=== PATIENT | male | born 1950 | race African-American/Black ===

== ENCOUNTER 2018-04-09 18:18 | Emergency (ER) | payer MEDICARE, MEDICAID ==
[~2018-04-09] VITALS: Ht 170.2 cm; Wt 59.0 kg
[2018-04-09] MEDS ORDERED: SODIUM CHLORIDE 0.9% 1,000 ML IV ONE (20:27)
[2018-04-09] MEDS ORDERED: ONDANSETRON HCL 4MG/2ML INJ IV STA (20:27)
[2018-04-09] MEDS ORDERED: BACITRACIN ZINC OINT UDPKT TOP ONE (20:30)
[2018-04-09] MEDS ORDERED: TETANUS, DIPHTHERIA, PERTUSSIS VAC/PF 0.5ML (>7YR OLD) IM ONE (20:30)
[2018-04-09 23:19] VITALS: BP 128/79
[2018-04-09 23:43] LABS: CHLORIDE 102 mEq/L (98-107)
[2018-04-09 23:44] LABS: BASOPHILS % 1.1 % (0.0-2.0); HEMOGLOBIN. 16.5 g/dL (14.0-18.0); LYMPHOCYTES % 14.1 % (20.0-50.0); MEAN CORPUSCULAR HEMOGLOBIN 33.6 pg (28.0-32.0); MEAN CORPUSCULAR VOLUME 99.7 fL (80.0-94.0); MONOCYTES % 7.1 % (2.0-8.0); NEUTROPHILS % 71.7 % (40.0-76.0); PLATELET 191 x1000/uL (130-400); RED BLOOD CELL COUNT 4.91 mill/uL (4.7-6.1); RED CELL DISTRIBUTION WIDTH 14.1 % (11.6-14.6)
[2018-04-09 23:47] LABS: ETHANOL BLOOD 207 mg/dL
[2018-04-10 00:42] LABS: CREATINE KINASE 210 IU/L (39-308)
== END 2018-04-10 00:51 | disposition home or self-care (01) ==
LOC: ER 19:10
DX: T51.0X1A Toxic effect of ethanol, accidental (unintentional), initial encounter (principal); F10.129 Alcohol abuse with intoxication, unspecified; Y90.7 Blood alcohol level of 200-239 mg/100 ml; G92 Toxic encephalopathy; S09.8XXA Other specified injuries of head, initial encounter; Y92.480 Sidewalk as the place of occurrence of the external cause
CPT/HCPCS: 36415; 70450; 80053; 82550; 84443; 85025; 90471; 90715; 96361; 96374; 99284; G0482; J2405; J7030

== ENCOUNTER 2019-08-08 23:01 | Inpatient (IN) | payer MEDICARE, MEDICAID ==
[~2019-08-08] VITALS: Ht 170.2 cm; Wt 64.0 kg
[2019-08-09] VITALS (20 sets, daily range): BP systolic 95–151; BP diastolic 53–89
[2019-08-09 00:15] LABS: CHLORIDE 105 mEq/L (98-107); INR 1.3; PROTHROMBIN TIME 13.8 sec (9.6-11.0)
[2019-08-09] MEDS ORDERED: SODIUM CHLORIDE 0.9% 1,000 ML IV ONE (00:15)
[2019-08-09 00:19] LABS: ETHANOL BLOOD < 10 mg/dL
[2019-08-09 00:22] LABS: LDL CHOLESTEROL 24 mg/dL (5-100)
[2019-08-09] MEDS ORDERED: IOHEXOL-350 100 ML BOTTLE ONE ×2 (00:23→00:24)
[2019-08-09 00:46] LABS: MEAN CORPUSCULAR HEMOGLOBIN 13.9 pg (28.0-32.0); MEAN CORPUSCULAR VOLUME 52.7 fL (80.0-94.0); MEAN PLATELET VOLUME 8.6 fl (7.4-10.4); PLATELET 341 x1000/uL (130-400); RED BLOOD CELL COUNT 1.92 mill/uL (4.7-6.1)
[2019-08-09 00:49] LABS: HEMATOCRIT. 10.1 % (42.0-52.0)
[2019-08-09 00:50] LABS: HEMOGLOBIN. 2.7 g/dL (14.0-18.0)
[2019-08-09 01:27] LABS: NUCLEATED RED BLOOD CELLS 2 /100 WBC
[2019-08-09 01:28] LABS: PLATELET ESTIMATE NORMAL
[2019-08-09 02:07] LABS: TOTAL IRON BINDING CAPACITY 471 ug/dL (250-450)
[2019-08-09] MEDS ORDERED: FAMOTIDINE 20MG/2ML VIAL IV ONE (06:30)
[2019-08-09] MEDS ORDERED: ASPIRIN 81MG TABLET PO ONE (06:30)
[2019-08-09] MEDS ORDERED: DIPHENHYDRAMINE 50MG/ML VIAL IV PRN (07:15)
[2019-08-09] MEDS ORDERED: CLONIDINE 0.1MG TABLET PO PRN (07:15)
[2019-08-09] MEDS ORDERED: LORAZEPAM 2MG/ML CPJ IV PRN (07:15)
[2019-08-09] MEDS ORDERED: ONDANSETRON HCL 4MG/2ML INJ IV PRN (07:15)
[2019-08-09] MEDS ORDERED: DOCUSATE SODIUM 100MG CAPSULE PO PRN (07:15)
[2019-08-09] MEDS ORDERED: IPRATROPIUM/ALBUTEROL 0.5-3(2.5)MG/3ML NEB HHN PRN (07:15)
[2019-08-09] MEDS ORDERED: HYDRALAZINE 20MG/ML VIAL IV PRN (07:15)
[2019-08-09] MEDS ORDERED: HYDROCODONE/ACETAMINOPHEN 10/325MG TABLET PO PRN (07:15)
[2019-08-09] MEDS ORDERED: MORPHINE SULFATE 2 MG/ML CPJ (NOT FOR IM USE) IV PRN (07:15)
[2019-08-09] MEDS ORDERED: ACETAMINOPHEN 325MG TABLET PO PRN (07:15)
[2019-08-09] MEDS ORDERED: GUAIFENESIN 200MG/10ML SUGAR FREE UDC PO PRN (07:15)
[2019-08-09] MEDS ORDERED: MAGNESIUM/ALUMINUM HYDROXIDE/SIMETHICONE 30ML UDC PO PRN (07:15)
[2019-08-09] MEDS ORDERED: DEXT 5%/0.9% NACL 1,000 ML IV SCH (07:30)
[2019-08-09 08:28] LABS: CLARITY URINE CLEAR (CLEAR); COLOR URINE YELLOW (YELLOW); KETONES URINE NEGATIVE (NEGATIVE); LEUKOCYTE ESTERASE URINE NEGATIVE (NEGATIVE); NITRITE URINE NEGATIVE (NEGATIVE); OCCULT BLOOD URINE NEGATIVE (NEGATIVE); PROTEIN URINE NEGATIVE (NEGATIVE); SPECIFIC GRAVITY URINE 1.021 (1.005-1.030); UROBILINOGEN URINE 0.2 E.U./dL (0.2-1.0)
[2019-08-09 08:41] LABS: *BARBITURATES SCREEN URINE PRESUMTIVE POSITIVE (NEGATIVE)
[2019-08-09 08:42] LABS: *AMPHETAMINES SCREEN URINE NEGATIVE (NEGATIVE); *BENZODIAZEPINES SCREEN URINE NEGATIVE (NEGATIVE); *COCAINE SCREEN URINE NEGATIVE (NEGATIVE); METHADONE URINE SCREEN NEGATIVE (NEGATIVE)
[2019-08-09 08:43] LABS: CANNABINOID URINE SCREEN NEGATIVE (NEGATIVE); OPIATES URINE SCREEN NEGATIVE (NEGATIVE); PHENCYCLIDINE URINE SCREEN NEGATIVE (NEGATIVE)
[2019-08-09 09:03] LABS: VITAMIN B12 SERUM >2000 pg/mL pg/mL (211-911)
[2019-08-09] MEDS ORDERED: SODIUM BICARBONATE 8.4% 1 MEQ/ML 50ML SYR IV SCH (09:30)
[2019-08-09 09:49] LABS: BG HCO3 ACT 17.6 mmol/L (22.0-26.0); BG PCO2 25.5 mmHg (35.0-45.0); BG PH 7.458 (7.350-7.450); BG PO2 94.8 mmHg (75.0-100.0); BG SAMPLE SITE RIGHT RADIAL; BG TOTAL HEMOGLOBIN < 4.5 g/dL (12.0-18.0); BG VENT MODE NASAL CANNULA
[2019-08-09] MEDS: PANTOPRAZOLE SODIUM 40 MG/VIAL IV SCH ×2 (09:57→16:00)
[2019-08-09 10:20] LABS: MEAN CORPUSCULAR HEMOGLOBIN 16.5 pg (28.0-32.0); MEAN CORPUSCULAR VOLUME 58.8 fL (80.0-94.0); PLATELET 282 x1000/uL (130-400); RED BLOOD CELL COUNT 1.85 mill/uL (4.7-6.1); RED CELL DISTRIBUTION WIDTH 34.7 % (11.6-14.6)
[2019-08-09 10:26] LABS: HEMATOCRIT 10.9 % (42.0-52.0); HEMOGLOBIN 3.1 g/dL (14.0-18.0)
[2019-08-09] MEDS ORDERED: LIDOCAINE HCL 1% 20ML VIAL (Pyxis) INJ ONE (10:35)
[2019-08-09 10:45] LABS: CREATINE KINASE 153 IU/L (39-308)
[2019-08-09] MEDS: SODIUM BICARBONATE 100 MEQ in SODIUM CHLORIDE 0.45% 1,000 ML IV SCH ×2 (11:40→21:19)
[2019-08-09] MEDS ORDERED: MAGN200T5 PO (12:34)
[2019-08-09] MEDS ORDERED: HYDR25TA PO (12:34)
[2019-08-09] MEDS ORDERED: ASPI-1497 PO (12:34)
[2019-08-09] MEDS ORDERED: FOLI-43 PO (12:34)
[2019-08-09] MEDS ORDERED: LEVE1000 PO (12:34)
[2019-08-09] MEDS ORDERED: AMLO10TA4 PO (12:34)
[2019-08-09] MEDS ORDERED: VIT B12 PO (12:34)
[2019-08-09] MEDS ORDERED: KETO15CR2 TP (12:34)
[2019-08-09] MEDS ORDERED: PHEN32.46 PO (12:34)
[2019-08-09] MEDS ORDERED: ALLO100T PO (12:34)
[2019-08-09] MEDS ORDERED: ACET-2708 PO (12:34)
[2019-08-09] MEDS ORDERED: OMEP20TA15 PO (12:34)
[2019-08-09] MEDS ORDERED: VIT D PO (12:34)
[2019-08-09] MEDS ORDERED: AMMO140C2 TP (12:34)
[2019-08-09] MEDS: IRON SUCROSE COMPLEX 100 MG/5 ML ML IV SCH (13:24)
[2019-08-09] MEDS: SODIUM CHLORIDE 0.9% INJ 3ML FLUSH IVF SCH ×2 (13:24→21:19)
[2019-08-09] MEDS: SUCRALFATE 1 G/10 ML UDC PO SCH ×3 (13:24→21:18)
[2019-08-09 16:44] LABS: CREATINE KINASE MB FRACTION 5.5 ng/mL (0.5-3.6)
[2019-08-09 17:14] LABS: MEAN CORPUSCULAR HEMOGLOBIN 21.9 pg (28.0-32.0); MEAN CORPUSCULAR VOLUME 68.4 fL (80.0-94.0); MEAN PLATELET VOLUME 8.9 fl (7.4-10.4); PLATELET 239 x1000/uL (130-400); RED CELL DISTRIBUTION WIDTH 39.8 % (11.6-14.6)
[2019-08-09 17:29] LABS: HEMATOCRIT. 17.1 % (42.0-52.0); HEMOGLOBIN. 5.5 g/dL (14.0-18.0)
[2019-08-09] MEDS ORDERED: FUROSEMIDE 20MG/2ML VIAL IVP NR (17:45)
[2019-08-09 19:38] LABS: PLATELET ESTIMATE NORMAL
[2019-08-09] MEDS: IPRATROPIUM BROMIDE (0.02%) 0.5MG/2.5ML NEB HHN SCH (20:40)
[2019-08-09 21:14] LABS: HEMATOCRIT 18.2 % (42.0-52.0); HEMOGLOBIN 5.7 g/dL (14.0-18.0)
[2019-08-09 21:15] LABS: HEMOGLOBIN 5.7 g/dL (14.0-18.0)
[2019-08-09] MEDS: LEVETIRACETAM 500MG/5ML CUP PO SCH (21:18)
[2019-08-09 21:21] LABS: CREATINE KINASE MB FRACTION 4.6 ng/mL (0.5-3.6)
[2019-08-10] VITALS (36 sets, daily range): BP systolic 103–163; BP diastolic 51–88
[2019-08-10] MEDS: SODIUM CHLORIDE 0.9% INJ 3ML FLUSH IVF SCH ×3 (01:50→22:00)
[2019-08-10] MEDS: IPRATROPIUM BROMIDE (0.02%) 0.5MG/2.5ML NEB HHN SCH ×4 (02:06→20:35)
[2019-08-10 05:51] LABS: BASOPHILS % 0.3 % (0.0-2.0); EOSINOPHILS % 0.5 % (0.0-5.0); HEMATOCRIT. 21.1 % (42.0-52.0); LYMPHOCYTES % 10.2 % (20.0-50.0); MEAN CORPUSCULAR HEMOGLOBIN 22.2 pg (28.0-32.0); MEAN CORPUSCULAR VOLUME 70.1 fL (80.0-94.0); MEAN PLATELET VOLUME 8.8 fl (7.4-10.4); MONOCYTES % 10.4 % (2.0-8.0); NEUTROPHILS % 78.6 % (40.0-76.0); PLATELET 247 x1000/uL (130-400); RED CELL DISTRIBUTION WIDTH 36.2 % (11.6-14.6)
[2019-08-10 05:53] LABS: CHLORIDE 109 mEq/L (98-107)
[2019-08-10 06:29] LABS: HEMOGLOBIN. 6.7 g/dL (14.0-18.0)
[2019-08-10] MEDS ORDERED: POTASSIUM CHLORIDE INJ 60 MEQ in DEXT 5% WATER 250 ML IV ONE (07:00)
[2019-08-10] MEDS ORDERED: POTASSIUM CHLORIDE 20MEQ/PACKET PO SCH (07:00)
[2019-08-10] MEDS: DEXT 5%/0.45% NACL KCL 20MEQ/L 1,000 ML IV SCH ×2 (07:58→20:13)
[2019-08-10] MEDS: SUCRALFATE 1 G/10 ML UDC PO SCH ×4 (07:59→20:12)
[2019-08-10] MEDS: KCL 20MEQ/100ML PREMIX 100 ML IV SCH ×3 (07:59→11:32)
[2019-08-10] MEDS: PANTOPRAZOLE SODIUM 40 MG/VIAL IV SCH ×2 (08:00→16:49)
[2019-08-10] MEDS: LEVETIRACETAM 500MG/5ML CUP PO SCH ×2 (08:00→20:12)
[2019-08-10 11:52] LABS: HEPATITIS B SURFACE ANTIGEN NEGATIVE
[2019-08-10 12:22] LABS: HEPATITIS A AB IGM NEGATIVE (NEGATIVE)
[2019-08-10] MEDS ORDERED: IOHEXOL-300 100 ML BOTTLE ONE ×2 (14:40→14:41)
[2019-08-10] MEDS: IRON SUCROSE COMPLEX 100 MG/5 ML ML IV SCH (14:44)
[2019-08-10 16:48] LABS: HEMOGLOBIN 8.5 g/dL (14.0-18.0)
[2019-08-10] MEDS ORDERED: KCL 20MEQ/100ML PREMIX 100 ML IV ONE (19:30)
[2019-08-10] MEDS ORDERED: POTASSIUM CHLORIDE INJ 60 MEQ in DEXT 5% WATER 500 ML IV NR (20:00)
[2019-08-11] VITALS (17 sets, daily range): BP systolic 114–142; BP diastolic 68–83
[2019-08-11] MEDS: IPRATROPIUM BROMIDE (0.02%) 0.5MG/2.5ML NEB HHN SCH ×4 (01:25→20:24)
[2019-08-11] MEDS: SODIUM CHLORIDE 0.9% INJ 3ML FLUSH IVF SCH ×3 (05:01→21:31)
[2019-08-11 05:50] LABS: BASOPHILS % 0.4 % (0.0-2.0); EOSINOPHILS % 0.8 % (0.0-5.0); HEMOGLOBIN. 8.8 g/dL (14.0-18.0); LYMPHOCYTES % 12.8 % (20.0-50.0); MEAN CORPUSCULAR HEMOGLOBIN 24.6 pg (28.0-32.0); MEAN CORPUSCULAR VOLUME 72.7 fL (80.0-94.0); MEAN PLATELET VOLUME 8.9 fl (7.4-10.4); MONOCYTES % 9.8 % (2.0-8.0); NEUTROPHILS % 76.2 % (40.0-76.0); PLATELET 274 x1000/uL (130-400); RED BLOOD CELL COUNT 3.58 mill/uL (4.7-6.1); RED CELL DISTRIBUTION WIDTH 35.6 % (11.6-14.6)
[2019-08-11 06:05] LABS: CHLORIDE 111 mEq/L (98-107)
[2019-08-11 06:15] LABS: PHOSPHORUS 1.4 mg/dL (2.5-4.9)
[2019-08-11] MEDS: LEVETIRACETAM 500MG/5ML CUP PO SCH ×2 (08:24→20:25)
[2019-08-11] MEDS: SUCRALFATE 1 G/10 ML UDC PO SCH ×4 (08:24→20:25)
[2019-08-11] MEDS: PANTOPRAZOLE SODIUM 40 MG/VIAL IV SCH ×2 (08:24→18:20)
[2019-08-11] MEDS ORDERED: POTASSIUM PHOS,M-BASIC-D-BASIC 20 MMOL in DEXT 5% WATER 243.3333 ML IV SCH (09:00)
[2019-08-11] MEDS: DEXT 5%/0.45% NACL KCL 20MEQ/L 1,000 ML IV SCH ×2 (09:55→23:15)
[2019-08-11] MEDS ORDERED: GADOBENATE DIMEGLUMINE 529 MG/ML 10ML IV ONE (12:10)
[2019-08-11] MEDS: IRON SUCROSE COMPLEX 100 MG/5 ML ML IV SCH (14:36)
[2019-08-11] MEDS: LACTULOSE 20G/30ML UDC PO SCH (18:19)
[2019-08-12] VITALS (12 sets, daily range): BP systolic 121–146; BP diastolic 62–85
[2019-08-12] MEDS: IPRATROPIUM BROMIDE (0.02%) 0.5MG/2.5ML NEB HHN SCH ×4 (01:59→20:11)
[2019-08-12] MEDS: SODIUM CHLORIDE 0.9% INJ 3ML FLUSH IVF SCH ×3 (06:05→21:09)
[2019-08-12 07:09] LABS: CHLORIDE 105 mEq/L (98-107)
[2019-08-12 07:26] LABS: PHOSPHORUS 2.4 mg/dL (2.5-4.9)
[2019-08-12] MEDS: SUCRALFATE 1 G/10 ML UDC PO SCH ×4 (07:30→21:09)
[2019-08-12 09:09] LABS: HEMATOCRIT. 31.7 % (42.0-52.0); MEAN CORPUSCULAR HEMOGLOBIN 24.3 pg (28.0-32.0); MEAN CORPUSCULAR VOLUME 77.1 fL (80.0-94.0); MEAN PLATELET VOLUME 8.6 fl (7.4-10.4); PLATELET 251 x1000/uL (130-400); RED BLOOD CELL COUNT 4.12 mill/uL (4.7-6.1); RED CELL DISTRIBUTION WIDTH 37.4 % (11.6-14.6)
[2019-08-12 10:07] LABS: NUCLEATED RED BLOOD CELLS 27 /100 WBC; PLATELET ESTIMATE NORMAL
[2019-08-12] MEDS: PANTOPRAZOLE SODIUM 40 MG/VIAL IV SCH ×2 (10:45→18:04)
[2019-08-12] MEDS: LACTULOSE 20G/30ML UDC PO SCH ×2 (10:45→13:44)
[2019-08-12] MEDS ORDERED: LEVETIRACETAM 500MG PREMIX 100 ML IV SCH (11:00)
[2019-08-12] MEDS ORDERED: LORAZEPAM 2MG/ML CPJ IV PRN (11:15)
[2019-08-12] MEDS ORDERED: SODIUM PHOS,M-BASIC-D-BASIC 15 MM in DEXT 5% WATER 245 ML IV SCH (13:00)
[2019-08-12] MEDS ORDERED: MAGNESIUM 2 G PREMIX 50 ML IV SCH (13:00)
[2019-08-12] MEDS: LEVETIRACETAM 1,000 MG in SODIUM CHLORIDE 0.9% 100 ML IV SCH ×2 (15:10→21:17)
[2019-08-12] MEDS ORDERED: SORBITOL 70% SOLN 30ML PO NR (17:00)
[2019-08-12] MEDS ORDERED: SORBITOL 70% SOLN 30ML PO SCH (21:00)
[2019-08-13] VITALS (10 sets, daily range): BP systolic 117–145; BP diastolic 70–85
[2019-08-13] MEDS: IPRATROPIUM BROMIDE (0.02%) 0.5MG/2.5ML NEB HHN SCH ×4 (02:36→20:28)
[2019-08-13] MEDS: SODIUM CHLORIDE 0.9% INJ 3ML FLUSH IVF SCH ×3 (06:26→21:41)
[2019-08-13 06:33] LABS: BASOPHILS % 0.5 % (0.0-2.0); EOSINOPHILS % 0.8 % (0.0-5.0); HEMATOCRIT. 34.1 % (42.0-52.0); HEMOGLOBIN. 10.7 g/dL (14.0-18.0); LYMPHOCYTES % 10.9 % (20.0-50.0); MEAN CORPUSCULAR HEMOGLOBIN 24.8 pg (28.0-32.0); MEAN CORPUSCULAR VOLUME 79.1 fL (80.0-94.0); MONOCYTES % 9.2 % (2.0-8.0); NEUTROPHILS % 78.6 % (40.0-76.0); RED BLOOD CELL COUNT 4.31 mill/uL (4.7-6.1); RED CELL DISTRIBUTION WIDTH 37.1 % (11.6-14.6)
[2019-08-13 08:03] LABS: CHLORIDE 112 mEq/L (98-107)
[2019-08-13 08:35] LABS: PHOSPHORUS 3.9 mg/dL (2.5-4.9)
[2019-08-13] MEDS: SUCRALFATE 1 G/10 ML UDC PO SCH ×4 (08:52→21:41)
[2019-08-13] MEDS: PANTOPRAZOLE SODIUM 40 MG/VIAL IV SCH ×2 (08:52→17:00)
[2019-08-13 10:08] LABS: PLATELET 205 x1000/uL (130-400)
[2019-08-13] MEDS: LEVETIRACETAM 1,000 MG in SODIUM CHLORIDE 0.9% 100 ML IV SCH ×2 (10:12→21:41)
[2019-08-13 13:06] LABS: FOLATE RBC 1761 ng/mL (>498)
[2019-08-13 16:08] LABS: CLARITY URINE CLEAR (CLEAR); COLOR URINE DARK YELLOW (YELLOW); KETONES URINE NEGATIVE (NEGATIVE); LEUKOCYTE ESTERASE URINE 1+ (NEGATIVE); NITRITE URINE NEGATIVE (NEGATIVE); OCCULT BLOOD URINE 3+ (NEGATIVE); PH URINE 5.5 (4.5-8.0); PROTEIN URINE 1+ (NEGATIVE); SPECIFIC GRAVITY URINE 1.016 (1.005-1.030)
[2019-08-13] MEDS ORDERED: MIDAZOLAM HCL 5 MG/5 ML VIAL ONE (16:09)
[2019-08-13] MEDS ORDERED: FENTANYL CITRATE/PF 50MCG/ML 2ML VIAL ONE (16:10)
[2019-08-13] MEDS ORDERED: MIDAZOLAM HCL 5 MG/5 ML VIAL IV PRN (16:18)
[2019-08-13] MEDS ORDERED: FENTANYL CITRATE/PF 50MCG/ML 2ML VIAL IV PRN (16:31)
[2019-08-13] MEDS: LACTULOSE 20G/30ML UDC PO SCH (18:00)
[2019-08-14] VITALS (12 sets, daily range): BP systolic 106–137; BP diastolic 65–77
[2019-08-14] MEDS: IPRATROPIUM BROMIDE (0.02%) 0.5MG/2.5ML NEB HHN SCH ×3 (01:37→20:43)
[2019-08-14] MEDS: SODIUM CHLORIDE 0.9% INJ 3ML FLUSH IVF SCH ×3 (06:14→21:48)
[2019-08-14] MEDS: LACTULOSE 20G/30ML UDC PO SCH ×4 (06:33→21:49)
[2019-08-14 06:38] LABS: BASOPHILS % 0.6 % (0.0-2.0); EOSINOPHILS % 3.3 % (0.0-5.0); HEMATOCRIT. 31.1 % (42.0-52.0); HEMOGLOBIN. 10.3 g/dL (14.0-18.0); LYMPHOCYTES % 15.8 % (20.0-50.0); MEAN CORPUSCULAR HEMOGLOBIN 25.7 pg (28.0-32.0); MEAN CORPUSCULAR VOLUME 77.5 fL (80.0-94.0); MONOCYTES % 8.7 % (2.0-8.0); NEUTROPHILS % 71.6 % (40.0-76.0); RED BLOOD CELL COUNT 4.01 mill/uL (4.7-6.1); RED CELL DISTRIBUTION WIDTH 37.8 % (11.6-14.6)
[2019-08-14 07:09] LABS: CHLORIDE 108 mEq/L (98-107)
[2019-08-14] MEDS: LEVETIRACETAM 1,000 MG in SODIUM CHLORIDE 0.9% 100 ML IV SCH ×2 (08:51→21:48)
[2019-08-14] MEDS: SUCRALFATE 1 G/10 ML UDC PO SCH ×4 (08:52→21:48)
[2019-08-14] MEDS: PANTOPRAZOLE SODIUM 40 MG/VIAL IV SCH ×2 (08:52→16:27)
[2019-08-14 10:25] LABS: MEAN PLATELET VOLUME 8.8 fl (7.4-10.4); PLATELET 176 x1000/uL (130-400)
[2019-08-15] VITALS (13 sets, daily range): BP systolic 114–153; BP diastolic 67–85
[2019-08-15] MEDS: IPRATROPIUM BROMIDE (0.02%) 0.5MG/2.5ML NEB HHN SCH ×4 (01:32→21:01)
[2019-08-15] MEDS: SUCRALFATE 1 G/10 ML UDC PO SCH ×4 (06:29→21:14)
[2019-08-15] MEDS: LACTULOSE 20G/30ML UDC PO SCH ×3 (06:29→21:15)
[2019-08-15] MEDS: SODIUM CHLORIDE 0.9% INJ 3ML FLUSH IVF SCH ×3 (06:30→21:14)
[2019-08-15] MEDS: LEVETIRACETAM 1,000 MG in SODIUM CHLORIDE 0.9% 100 ML IV SCH ×2 (08:23→21:14)
[2019-08-15] MEDS: PANTOPRAZOLE SODIUM 40 MG/VIAL IV SCH ×2 (08:23→18:05)
[2019-08-15] MEDS: MULTIVITAMINS,THER W-MINERALS TABLET PO SCH (18:06)
[2019-08-16] VITALS (12 sets, daily range): BP systolic 126–146; BP diastolic 69–80
[2019-08-16] MEDS: IPRATROPIUM BROMIDE (0.02%) 0.5MG/2.5ML NEB HHN SCH ×4 (02:27→20:10)
[2019-08-16] MEDS: LACTULOSE 20G/30ML UDC PO SCH ×3 (05:08→20:33)
[2019-08-16] MEDS: SODIUM CHLORIDE 0.9% INJ 3ML FLUSH IVF SCH ×3 (05:08→20:33)
[2019-08-16] MEDS: SUCRALFATE 1 G/10 ML UDC PO SCH ×4 (08:32→20:33)
[2019-08-16] MEDS: LEVETIRACETAM 1,000 MG in SODIUM CHLORIDE 0.9% 100 ML IV SCH ×2 (08:32→20:33)
[2019-08-16] MEDS: MULTIVITAMINS,THER W-MINERALS TABLET PO SCH (08:32)
[2019-08-16] MEDS: PANTOPRAZOLE SODIUM 40 MG/VIAL IV SCH ×2 (08:32→16:53)
[2019-08-17] VITALS (15 sets, daily range): BP systolic 128–154; BP diastolic 63–85
[2019-08-17] MEDS: IPRATROPIUM BROMIDE (0.02%) 0.5MG/2.5ML NEB HHN SCH ×4 (02:18→20:35)
[2019-08-17] MEDS: LACTULOSE 20G/30ML UDC PO SCH ×3 (05:18→21:30)
[2019-08-17] MEDS: SODIUM CHLORIDE 0.9% INJ 3ML FLUSH IVF SCH ×3 (05:18→21:30)
[2019-08-17 07:57] LABS: CHLORIDE 109 mEq/L (98-107)
[2019-08-17 07:59] LABS: HEMATOCRIT. 34.6 % (42.0-52.0); MEAN CORPUSCULAR HEMOGLOBIN 25.5 pg (28.0-32.0); MEAN CORPUSCULAR VOLUME 80.3 fL (80.0-94.0); MEAN PLATELET VOLUME 8.9 fl (7.4-10.4); PLATELET 86 x1000/uL (130-400); RED BLOOD CELL COUNT 4.31 mill/uL (4.7-6.1); RED CELL DISTRIBUTION WIDTH 37.9 % (11.6-14.6)
[2019-08-17] MEDS: MULTIVITAMINS,THER W-MINERALS TABLET PO SCH (08:42)
[2019-08-17] MEDS: SUCRALFATE 1 G/10 ML UDC PO SCH ×4 (08:42→21:30)
[2019-08-17] MEDS: LEVETIRACETAM 1,000 MG in SODIUM CHLORIDE 0.9% 100 ML IV SCH ×2 (08:42→21:30)
[2019-08-17] MEDS: PANTOPRAZOLE SODIUM 40 MG/VIAL IV SCH ×2 (08:42→17:00)
[2019-08-18] VITALS (12 sets, daily range): BP systolic 113–156; BP diastolic 73–84
[2019-08-18] MEDS: LACTULOSE 20G/30ML UDC PO SCH ×3 (06:38→22:04)
[2019-08-18] MEDS: SUCRALFATE 1 G/10 ML UDC PO SCH ×4 (06:38→22:04)
[2019-08-18] MEDS: SODIUM CHLORIDE 0.9% INJ 3ML FLUSH IVF SCH ×3 (06:40→22:04)
[2019-08-18 08:05] LABS: PLATELET ESTIMATE DECREASED
[2019-08-18] MEDS: IPRATROPIUM BROMIDE (0.02%) 0.5MG/2.5ML NEB HHN SCH ×3 (08:06→20:48)
[2019-08-18] MEDS: LEVETIRACETAM 1,000 MG in SODIUM CHLORIDE 0.9% 100 ML IV SCH ×2 (08:57→22:04)
[2019-08-18] MEDS: MULTIVITAMINS,THER W-MINERALS TABLET PO SCH (08:57)
[2019-08-18] MEDS: PANTOPRAZOLE SODIUM 40 MG/VIAL IV SCH ×2 (08:57→17:10)
[2019-08-19] VITALS (12 sets, daily range): BP systolic 121–156; BP diastolic 67–86
[2019-08-19] MEDS: IPRATROPIUM BROMIDE (0.02%) 0.5MG/2.5ML NEB HHN SCH ×4 (01:01→21:02)
[2019-08-19] MEDS: SUCRALFATE 1 G/10 ML UDC PO SCH ×4 (06:08→22:05)
[2019-08-19] MEDS: LACTULOSE 20G/30ML UDC PO SCH ×3 (06:08→22:05)
[2019-08-19] MEDS: SODIUM CHLORIDE 0.9% INJ 3ML FLUSH IVF SCH ×3 (06:09→22:05)
[2019-08-19] MEDS: MULTIVITAMINS,THER W-MINERALS TABLET PO SCH (08:19)
[2019-08-19] MEDS: PANTOPRAZOLE SODIUM 40 MG/VIAL IV SCH ×2 (08:20→17:30)
[2019-08-19] MEDS: LEVETIRACETAM 1,000 MG in SODIUM CHLORIDE 0.9% 100 ML IV SCH ×2 (09:56→22:04)
[2019-08-20] VITALS (9 sets, daily range): BP systolic 120–159; BP diastolic 68–84
[2019-08-20] MEDS: IPRATROPIUM BROMIDE (0.02%) 0.5MG/2.5ML NEB HHN SCH ×3 (01:54→13:38)
[2019-08-20] MEDS: SODIUM CHLORIDE 0.9% INJ 3ML FLUSH IVF SCH ×2 (06:00→13:50)
[2019-08-20] MEDS: SUCRALFATE 1 G/10 ML UDC PO SCH ×2 (06:08→12:26)
[2019-08-20] MEDS: LACTULOSE 20G/30ML UDC PO SCH ×2 (06:08→14:13)
[2019-08-20 07:42] LABS: HEMATOCRIT. 37.2 % (42.0-52.0); MEAN CORPUSCULAR VOLUME 80.5 fL (80.0-94.0); RED BLOOD CELL COUNT 4.63 mill/uL (4.7-6.1); RED CELL DISTRIBUTION WIDTH 35.6 % (11.6-14.6)
[2019-08-20 08:07] LABS: CHLORIDE 106 mEq/L (98-107)
[2019-08-20] MEDS: MULTIVITAMINS,THER W-MINERALS TABLET PO SCH (09:05)
[2019-08-20] MEDS: LEVETIRACETAM 1,000 MG in SODIUM CHLORIDE 0.9% 100 ML IV SCH (09:05)
[2019-08-20] MEDS: PANTOPRAZOLE SODIUM 40 MG/VIAL IV SCH (09:05)
[2019-08-20 13:24] LABS: PLATELET 88 x1000/uL (130-400)
[2019-08-20 13:27] LABS: PLATELET ESTIMATE DECREASED
[2019-08-20] MEDS ORDERED: LEVETIRACETAM 500MG TABLET PO SCH (21:00)
== END 2019-08-20 18:20 | disposition home health service (06) | DRG 47 ==
LOC: ER 23:01 → CVICU 08-09 02:03 → EDBEDREQ 08-09 02:05 → EDBEDREQSVC 08-09 02:05 → EDBEDREQDT 08-09 02:05 → EDBEDREQTM 08-09 02:05 → ENRESERV 08-09 07:33 → 5EST 08-11 10:45
PROVIDERS: ADMIT Internal Medicine; ATTEND Internal Medicine
PROC: 06HY33Z Insertion of Infusion Device into Lower Vein, Percutaneous Approach (ICD-10-PCS; 2019-08-08)
PROC: B54BZZA Ultrasonography of Right Lower Extremity Veins, Guidance (ICD-10-PCS; 2019-08-08)
PROC: 30233K1 Transfusion of Nonautologous Frozen Plasma into Peripheral Vein, Percutaneous Approach (ICD-10-PCS; 2019-08-09)
PROC: 30233N1 Transfusion of Nonautologous Red Blood Cells into Peripheral Vein, Percutaneous Approach (ICD-10-PCS; 2019-08-09)
PROC: 02HV33Z Insertion of Infusion Device into Superior Vena Cava, Percutaneous Approach (ICD-10-PCS; 2019-08-09)
PROC: B548ZZA Ultrasonography of Superior Vena Cava, Guidance (ICD-10-PCS; 2019-08-09)
PROC: 0DB68ZX Excision of Stomach, Via Natural or Artificial Opening Endoscopic, Diagnostic (ICD-10-PCS; principal; 2019-08-13)
PROC: 0DJD8ZZ Inspection of Lower Intestinal Tract, Via Natural or Artificial Opening Endoscopic (ICD-10-PCS; 2019-08-13)
DX: G45.9 Transient cerebral ischemic attack, unspecified (principal); N17.0 Acute kidney failure with tubular necrosis; G93.40 Encephalopathy, unspecified; I95.9 Hypotension, unspecified; E46 Unspecified protein-calorie malnutrition; E87.2 Acidosis; I13.0 Hypertensive heart and chronic kidney disease with heart failure and stage 1 through stage 4 chronic kidney disease, or unspecified chronic kidney disease; I27.20 Pulmonary hypertension, unspecified; I50.9 Heart failure, unspecified; I07.1 Rheumatic tricuspid insufficiency; J44.9 Chronic obstructive pulmonary disease, unspecified; D50.9 Iron deficiency anemia, unspecified; R47.1 Dysarthria and anarthria; B18.2 Chronic viral hepatitis C; F10.10 Alcohol abuse, uncomplicated; Z86.73 Personal history of transient ischemic attack (TIA), and cerebral infarction without residual deficits; N18.9 Chronic kidney disease, unspecified; G40.909 Epilepsy, unspecified, not intractable, without status epilepticus; E03.9 Hypothyroidism, unspecified; E53.8 Deficiency of other specified B group vitamins; M10.9 Gout, unspecified; K21.9 Gastro-esophageal reflux disease without esophagitis; D72.829 Elevated white blood cell count, unspecified; K63.5 Polyp of colon; K64.8 Other hemorrhoids; K29.50 Unspecified chronic gastritis without bleeding; K57.30 Diverticulosis of large intestine without perforation or abscess without bleeding; K44.9 Diaphragmatic hernia without obstruction or gangrene; R74.0 Nonspecific elevation of levels of transaminase and lactic acid dehydrogenase [LDH]; F17.210 Nicotine dependence, cigarettes, uncomplicated; E87.6 Hypokalemia; K76.0 Fatty (change of) liver, not elsewhere classified; I49.3 Ventricular premature depolarization; Z20.828 Contact with and (suspected) exposure to other viral communicable diseases; R79.89 Other specified abnormal findings of blood chemistry; Z68.22 Body mass index [BMI] 22.0-22.9, adult
CPT/HCPCS: 36415; 36600; 70496; 70498; 70553; 71045; 74177; 76700; 76770; 76937; 80048; 80053; 80076; 80305; 80320; 81003; 82140; 82270; 82375; 82550; 82553; 82607; 82728; 82747; 82805; 82962; 83540; 83550; 83615; 83721; 83735; 83880; 84100; 84132; 84466; 84484; 85014; 85018; 85025; 85027; 85044; 85379; 86705; 86709; 86803; 86850; 86900; 86920; 86927; 87340; 87635; 88305; 88312; 88313; 92610; 93005; 93306; 93970; 94640; 95816; 97116; 97162; 97530; 99152; 99153; 99291; A9577; C1725; C9113; J1940; J1953; J2060; J2250; J3010; J3475; J3480; J3490; J7030; J7050; J7060; P9016; P9017; Q9967; G0480; G0500

== ENCOUNTER 2019-11-14 00:22 | Emergency (ER) | payer MEDICARE, OTHER ==
[~2019-11-14] VITALS: Ht 167.6 cm; Wt 64.0 kg
[~2019-11-14 00:22] MED LIST: ACET-2708 PO; ALLO100T PO; AMLO10TA4 PO; AMMO140C2 TP; ASPI-1497 PO; FOLI-43 PO; HYDR25TA PO; KETO15CR2 TP; LEVE1000 PO; MAGN200T5 PO; OMEP20TA15 PO; PHEN32.46 PO; VIT B12 PO; VIT D PO
[2019-11-14] MEDS ORDERED: ONDANSETRON HCL 4MG/2ML INJ IV STA (00:25)
[2019-11-14] MEDS ORDERED: SODIUM CHLORIDE 0.9% 500 ML IV ONE (00:30)
[2019-11-14] MEDS ORDERED: LEVETIRACETAM 1000MG/100ML 100 ML IV ONE (00:30)
[2019-11-14 01:19] LABS: BASOPHILS % 0.4 % (0.0-2.0); HEMATOCRIT. 34.6 % (42.0-52.0); HEMOGLOBIN. 10.8 g/dL (14.0-18.0); LYMPHOCYTES % 7.5 % (20.0-50.0); MEAN CORPUSCULAR HEMOGLOBIN 23.1 pg (28.0-32.0); MEAN CORPUSCULAR VOLUME 73.9 fL (80.0-94.0); MEAN PLATELET VOLUME 9.1 fl (7.4-10.4); NEUTROPHILS % 83.1 % (40.0-76.0); PLATELET 412 x1000/uL (130-400); RED BLOOD CELL COUNT 4.69 mill/uL (4.7-6.1); RED CELL DISTRIBUTION WIDTH 30.8 % (11.6-14.6)
[2019-11-14 01:23] LABS: CHLORIDE 98 mEq/L (98-107)
[2019-11-14 01:29] LABS: ETHANOL BLOOD < 10 mg/dL
[2019-11-14 03:20] LABS: CLARITY URINE CLEAR (CLEAR); COLOR URINE YELLOW (YELLOW); KETONES URINE NEGATIVE (NEGATIVE); LEUKOCYTE ESTERASE URINE 3+ (NEGATIVE); NITRITE URINE POSITIVE (NEGATIVE); OCCULT BLOOD URINE TRACE (NEGATIVE); PROTEIN URINE 1+ (NEGATIVE); UROBILINOGEN URINE 0.2 E.U./dL (0.2-1.0)
[2019-11-14 04:11] LABS: *BARBITURATES SCREEN URINE PRESUMTIVE POSITIVE (NEGATIVE); *BENZODIAZEPINES SCREEN URINE NEGATIVE (NEGATIVE); *COCAINE SCREEN URINE NEGATIVE (NEGATIVE); METHADONE URINE SCREEN NEGATIVE (NEGATIVE); OPIATES URINE SCREEN NEGATIVE (NEGATIVE)
[2019-11-14 04:12] LABS: *AMPHETAMINES SCREEN URINE NEGATIVE (NEGATIVE); CANNABINOID URINE SCREEN NEGATIVE (NEGATIVE); PHENCYCLIDINE URINE SCREEN NEGATIVE (NEGATIVE)
[2019-11-14] MEDS ORDERED: CEFTRIAXONE 1 G PREMIX 50 ML IV NR (05:00)
[2019-11-14 07:51] VITALS: BP 131/68
== END 2019-11-14 07:54 | disposition left against medical advice (07) ==
LOC: ER 00:22
DX: G40.909 Epilepsy, unspecified, not intractable, without status epilepticus (principal); I10 Essential (primary) hypertension; Z79.899 Other long term (current) drug therapy; Z79.82 Long term (current) use of aspirin
CPT/HCPCS: 36415; 70450; 71045; 80053; 80305; 80320; 81003; 82140; 83605; 84484; 85025; 87077; 87086; 87186; 93005; 96365; 96367; 96375; 99285; J0696; J1953; J2405; J7040; G0480

== ENCOUNTER 2019-11-14 10:14 | Inpatient (IN) | payer MEDICARE, OTHER ==
[~2019-11-14] VITALS: Ht 167.6 cm; Wt 65.3 kg
[2019-11-14] MEDS ORDERED: CEFTRIAXONE 1 G PREMIX 50 ML IV ONE (11:15)
[2019-11-14] MEDS ORDERED: SODIUM CHLORIDE 0.9% 1000ML BAG (SEPSIS BOLUS) IV ONE (11:15)
[2019-11-14 11:33] LABS: HEMOGLOBIN. 10.2 g/dL (14.0-18.0); MEAN CORPUSCULAR HEMOGLOBIN 22.9 pg (28.0-32.0); MEAN PLATELET VOLUME 8.7 fl (7.4-10.4); PLATELET 435 x1000/uL (130-400); RED BLOOD CELL COUNT 4.44 mill/uL (4.7-6.1); RED CELL DISTRIBUTION WIDTH 30.9 % (11.6-14.6)
[2019-11-14 12:05] LABS: PLATELET ESTIMATE SLIGHTLY INCREASED
[2019-11-14 12:15] LABS: CHLORIDE 104 mEq/L (98-107)
[2019-11-14 12:17] LABS: ETHANOL BLOOD < 10 mg/dL
[2019-11-14 13:06] LABS: CLARITY URINE CLOUDY (CLEAR); COLOR URINE DK YELLOW (YELLOW); KETONES URINE NEGATIVE (NEGATIVE); LEUKOCYTE ESTERASE URINE 3+ (NEGATIVE); NITRITE URINE NEGATIVE (NEGATIVE); OCCULT BLOOD URINE NEGATIVE (NEGATIVE); PH URINE 5.5 (4.5-8.0); PROTEIN URINE 1+ (NEGATIVE); SPECIFIC GRAVITY URINE 1.019 (1.005-1.030)
[2019-11-14 13:55] LABS: *AMPHETAMINES SCREEN URINE NEGATIVE (NEGATIVE); *BARBITURATES SCREEN URINE PRESUMTIVE POSITIVE (NEGATIVE); *BENZODIAZEPINES SCREEN URINE NEGATIVE (NEGATIVE); *COCAINE SCREEN URINE NEGATIVE (NEGATIVE); METHADONE URINE SCREEN NEGATIVE (NEGATIVE); OPIATES URINE SCREEN NEGATIVE (NEGATIVE); PHENCYCLIDINE URINE SCREEN NEGATIVE (NEGATIVE)
[2019-11-14 13:56] LABS: CANNABINOID URINE SCREEN NEGATIVE (NEGATIVE)
[2019-11-14] MEDS ORDERED: ONDANSETRON HCL 4MG/2ML INJ IV PRN (19:15)
[2019-11-14] MEDS ORDERED: IPRATROPIUM/ALBUTEROL 0.5-3(2.5)MG/3ML NEB HHN PRN (19:15)
[2019-11-14] MEDS ORDERED: DOCUSATE SODIUM 100MG CAPSULE PO PRN (19:15)
[2019-11-14] MEDS ORDERED: CLONIDINE 0.1MG TABLET PO PRN (19:15)
[2019-11-14] MEDS ORDERED: MAGNESIUM/ALUMINUM HYDROXIDE/SIMETHICONE 30ML UDC PO PRN (19:15)
[2019-11-14] MEDS ORDERED: CEFTRIAXONE 1 G PREMIX 50 ML IV SCH (19:15)
[2019-11-14] MEDS: SODIUM CHLORIDE 0.9% 1,000 ML IV SCH (19:30)
[2019-11-14] MEDS: ENOXAPARIN 40MG/0.4ML SYR SUBCUT SCH (20:00)
[2019-11-14] MEDS: LEVETIRACETAM 500MG TABLET PO SCH (21:24)
[2019-11-14 23:51] VITALS: BP 128/69
[2019-11-15] MEDS: ACETAMINOPHEN 325MG TABLET PO PRN (00:04)
[2019-11-15 08:00] VITALS: BP 111/61
[2019-11-15] MEDS: PHENOBARBITAL 30 MG TABLET PO SCH (09:07)
[2019-11-15] MEDS: HYDROCHLOROTHIAZIDE 25MG TABLET PO SCH (09:07)
[2019-11-15] MEDS: LEVETIRACETAM 500MG TABLET PO SCH ×2 (09:07→20:11)
[2019-11-15] MEDS: FOLIC ACID 1MG TABLET PO SCH (09:07)
[2019-11-15] MEDS: ASPIRIN 81MG EC TABLET PO SCH (09:08)
[2019-11-15] MEDS: AMLODIPINE 10MG TABLET PO SCH (09:08)
[2019-11-15 10:51] LABS: HEMATOCRIT. 31.8 % (42.0-52.0); MEAN CORPUSCULAR HEMOGLOBIN 22.8 pg (28.0-32.0); MEAN CORPUSCULAR VOLUME 72.9 fL (80.0-94.0); MEAN PLATELET VOLUME 9.1 fl (7.4-10.4); PLATELET 328 x1000/uL (130-400); RED BLOOD CELL COUNT 4.37 mill/uL (4.7-6.1); RED CELL DISTRIBUTION WIDTH 30.5 % (11.6-14.6)
[2019-11-15 10:59] LABS: CHLORIDE 105 mEq/L (98-107)
[2019-11-15 11:10] LABS: PHOSPHORUS 3.3 mg/dL (2.5-4.9)
[2019-11-15 12:00] VITALS: BP 105/58
[2019-11-15] MEDS ORDERED: CEFTRIAXONE 1,000 MG in DEXTROSE 5% WATER 50 ML IV SCH ×4 (12:00)
[2019-11-15] MEDS: SODIUM CHLORIDE 0.9% 1,000 ML IV SCH (12:41)
[2019-11-15 16:00] VITALS: BP 112/62
[2019-11-15 18:02] LABS: PLATELET ESTIMATE NORMAL
[2019-11-15] MEDS ORDERED: POTASSIUM CHLORIDE INJ 40 MEQ in DEXT 5% WATER 250 ML IV NR (18:30)
[2019-11-15 20:00] VITALS: BP 134/68
[2019-11-15] MEDS: ENOXAPARIN 40MG/0.4ML SYR SUBCUT SCH (20:11)
[2019-11-15] MEDS: PIPERACILLIN/TAZOBACTAM 3.375 G in DEXT 5% WATER 100 ML IV SCH (20:18)
[2019-11-15] MEDS: VANCOMYCIN 1 G PREMIX 200 ML IV SCH (21:45)
[2019-11-15] MEDS ORDERED: PIPERACILLIN/TAZOBACTAM 3.375 G/VIAL IV SCH (22:00)
[2019-11-16] VITALS: BP 120/58
[2019-11-16] MEDS: PIPERACILLIN/TAZOBACTAM 3.375 G in DEXT 5% WATER 100 ML IV SCH ×3 (04:00→21:08)
[2019-11-16 04:05] VITALS: BP 115/53
[2019-11-16 08:23] VITALS: BP 148/86
[2019-11-16] MEDS: PHENOBARBITAL 30 MG TABLET PO SCH (08:24)
[2019-11-16] MEDS: FOLIC ACID 1MG TABLET PO SCH (08:24)
[2019-11-16] MEDS: HYDROCHLOROTHIAZIDE 25MG TABLET PO SCH (08:24)
[2019-11-16] MEDS: LEVETIRACETAM 500MG TABLET PO SCH ×2 (08:24→21:08)
[2019-11-16] MEDS: ASPIRIN 81MG EC TABLET PO SCH (08:24)
[2019-11-16] MEDS: VANCOMYCIN 1 G PREMIX 200 ML IV SCH ×2 (08:24→21:07)
[2019-11-16 08:25] LABS: BASOPHILS % 0.6 % (0.0-2.0); EOSINOPHILS % 1.6 % (0.0-5.0); HEMATOCRIT. 32.9 % (42.0-52.0); HEMOGLOBIN. 10.2 g/dL (14.0-18.0); LYMPHOCYTES % 13.5 % (20.0-50.0); MEAN CORPUSCULAR HEMOGLOBIN 22.9 pg (28.0-32.0); MEAN CORPUSCULAR VOLUME 73.6 fL (80.0-94.0); MEAN PLATELET VOLUME 8.8 fl (7.4-10.4); MONOCYTES % 10.8 % (2.0-8.0); NEUTROPHILS % 73.5 % (40.0-76.0); PLATELET 332 x1000/uL (130-400); RED BLOOD CELL COUNT 4.47 mill/uL (4.7-6.1); RED CELL DISTRIBUTION WIDTH 30.2 % (11.6-14.6)
[2019-11-16] MEDS: AMLODIPINE 10MG TABLET PO SCH (08:25)
[2019-11-16 08:39] LABS: CHLORIDE 105 mEq/L (98-107)
[2019-11-16] MEDS ORDERED: IOHEXOL-300 100 ML BOTTLE ONE (10:00)
[2019-11-16] MEDS ORDERED: POTASSIUM CHLORIDE 20MEQ/PACKET PO SCH (12:00)
[2019-11-16 13:57] LABS: PLATELET ESTIMATE NORMAL
[2019-11-16 14:00] VITALS: BP 148/60
[2019-11-16 16:00] VITALS: BP 110/60
[2019-11-16] MEDS ORDERED: POTASSIUM CHLORIDE 20MEQ TABLET SR PO NR (18:00)
[2019-11-16 20:00] VITALS: BP 116/59
[2019-11-16] MEDS: ENOXAPARIN 40MG/0.4ML SYR SUBCUT SCH (21:07)
[2019-11-16] MEDS: SODIUM CHLORIDE 0.9% 1,000 ML IV SCH (21:30)
[2019-11-17] VITALS: BP 104/53
[2019-11-17] MEDS: SODIUM CHLORIDE 0.9% 1,000 ML IV SCH ×2 (03:04→18:53)
[2019-11-17] MEDS: PIPERACILLIN/TAZOBACTAM 3.375 G in DEXT 5% WATER 100 ML IV SCH ×3 (03:08→20:06)
[2019-11-17 04:00] VITALS: BP 105/47
[2019-11-17 07:17] LABS: HEMATOCRIT. 30.3 % (42.0-52.0); HEMOGLOBIN. 9.5 g/dL (14.0-18.0); MEAN CORPUSCULAR HEMOGLOBIN 22.8 pg (28.0-32.0); MEAN CORPUSCULAR VOLUME 73.2 fL (80.0-94.0); MEAN PLATELET VOLUME 9.2 fl (7.4-10.4); PLATELET 296 x1000/uL (130-400); RED BLOOD CELL COUNT 4.14 mill/uL (4.7-6.1); RED CELL DISTRIBUTION WIDTH 30.2 % (11.6-14.6)
[2019-11-17 08:00] VITALS: BP 104/52
[2019-11-17 08:02] LABS: CHLORIDE 105 mEq/L (98-107)
[2019-11-17] MEDS: ASPIRIN 81MG EC TABLET PO SCH (08:54)
[2019-11-17] MEDS: AMLODIPINE 10MG TABLET PO SCH (08:54)
[2019-11-17] MEDS: LEVETIRACETAM 500MG TABLET PO SCH ×2 (08:54→20:46)
[2019-11-17] MEDS: PHENOBARBITAL 30 MG TABLET PO SCH (08:54)
[2019-11-17] MEDS: FOLIC ACID 1MG TABLET PO SCH (08:54)
[2019-11-17] MEDS: ALLOPURINOL 100 MG TABLET PO SCH (08:54)
[2019-11-17] MEDS: HYDROCHLOROTHIAZIDE 25MG TABLET PO SCH ×2 (08:54→09:00)
[2019-11-17 09:28] LABS: PLATELET ESTIMATE NORMAL
[2019-11-17] MEDS: VANCOMYCIN 1 G PREMIX 200 ML IV SCH (10:13)
[2019-11-17 12:00] VITALS: BP 102/57
[2019-11-17 16:03] VITALS: BP 114/60
[2019-11-17] MEDS: VANCOMYCIN 750 MG PREMIX 150 ML IV SCH (18:53)
[2019-11-17 20:00] VITALS: BP 111/56
[2019-11-17] MEDS: ENOXAPARIN 40MG/0.4ML SYR SUBCUT SCH (20:06)
[2019-11-18 00:03] VITALS: BP 122/62
[2019-11-18] MEDS: VANCOMYCIN 750 MG PREMIX 150 ML IV SCH (01:29)
[2019-11-18 04:00] VITALS: BP 124/59
[2019-11-18] MEDS: PIPERACILLIN/TAZOBACTAM 3.375 G in DEXT 5% WATER 100 ML IV SCH ×3 (04:04→20:36)
[2019-11-18] MEDS: ACETAMINOPHEN 325MG TABLET PO PRN (05:00)
[2019-11-18] MEDS: SODIUM CHLORIDE 0.9% 1,000 ML IV SCH ×2 (06:14→23:11)
[2019-11-18 06:46] LABS: CHLORIDE 109 mEq/L (98-107)
[2019-11-18 07:05] LABS: BASOPHILS % 0.7 % (0.0-2.0); EOSINOPHILS % 3.3 % (0.0-5.0); HEMATOCRIT. 29.3 % (42.0-52.0); HEMOGLOBIN. 9.3 g/dL (14.0-18.0); LYMPHOCYTES % 11.3 % (20.0-50.0); MEAN CORPUSCULAR HEMOGLOBIN 22.8 pg (28.0-32.0); MEAN CORPUSCULAR VOLUME 72.2 fL (80.0-94.0); MEAN PLATELET VOLUME 9.1 fl (7.4-10.4); MONOCYTES % 8.7 % (2.0-8.0); PLATELET 266 x1000/uL (130-400); RED BLOOD CELL COUNT 4.06 mill/uL (4.7-6.1); RED CELL DISTRIBUTION WIDTH 29.3 % (11.6-14.6)
[2019-11-18 08:00] VITALS: BP 109/54
[2019-11-18] MEDS: LEVETIRACETAM 500MG TABLET PO SCH ×2 (08:16→20:36)
[2019-11-18] MEDS: ASPIRIN 81MG EC TABLET PO SCH (08:16)
[2019-11-18] MEDS: FOLIC ACID 1MG TABLET PO SCH (08:16)
[2019-11-18] MEDS: PHENOBARBITAL 30 MG TABLET PO SCH (08:16)
[2019-11-18] MEDS: HYDROCHLOROTHIAZIDE 25MG TABLET PO SCH (08:17)
[2019-11-18] MEDS: ALLOPURINOL 100 MG TABLET PO SCH (08:17)
[2019-11-18] MEDS: AMLODIPINE 10MG TABLET PO SCH (08:18)
[2019-11-18] MEDS ORDERED: LEVO500T2 MT (11:35)
[2019-11-18 11:42] VITALS: BP 96/55
[2019-11-18] MEDS ORDERED: VANCOMYCIN 750 MG PREMIX 150 ML IV SCH (13:00)
[2019-11-18 16:17] VITALS: BP 122/64
[2019-11-18] MEDS: ENOXAPARIN 40MG/0.4ML SYR SUBCUT SCH (20:36)
[2019-11-18 20:38] VITALS: BP 108/69
[2019-11-19 00:27] VITALS: BP 105/62
[2019-11-19] MEDS: PIPERACILLIN/TAZOBACTAM 3.375 G in DEXT 5% WATER 100 ML IV SCH ×2 (03:52→12:00)
[2019-11-19 04:00] VITALS: BP 128/74
[2019-11-19 06:14] LABS: HEMATOCRIT. 30.4 % (42.0-52.0); HEMOGLOBIN. 9.4 g/dL (14.0-18.0); MEAN CORPUSCULAR HEMOGLOBIN 22.5 pg (28.0-32.0); MEAN CORPUSCULAR VOLUME 72.5 fL (80.0-94.0); MEAN PLATELET VOLUME 9.6 fl (7.4-10.4); PLATELET 256 x1000/uL (130-400); RED BLOOD CELL COUNT 4.19 mill/uL (4.7-6.1); RED CELL DISTRIBUTION WIDTH 29.9 % (11.6-14.6)
[2019-11-19 06:17] LABS: CHLORIDE 110 mEq/L (98-107)
[2019-11-19 08:00] VITALS: BP 119/65
[2019-11-19] MEDS: PHENOBARBITAL 30 MG TABLET PO SCH (08:37)
[2019-11-19] MEDS: FOLIC ACID 1MG TABLET PO SCH (08:38)
[2019-11-19] MEDS: ASPIRIN 81MG EC TABLET PO SCH (08:38)
[2019-11-19] MEDS: HYDROCHLOROTHIAZIDE 25MG TABLET PO SCH (08:38)
[2019-11-19] MEDS: LEVETIRACETAM 500MG TABLET PO SCH (08:38)
[2019-11-19] MEDS: ALLOPURINOL 100 MG TABLET PO SCH (08:38)
[2019-11-19] MEDS: AMLODIPINE 10MG TABLET PO SCH (08:38)
[2019-11-19] MEDS ORDERED: AMOX1TAB16 MT (09:40)
[2019-11-19 10:59] VITALS: BP 119/65
[2019-11-19 12:00] VITALS: BP 105/66
[2019-11-19 13:25] LABS: PLATELET ESTIMATE NORMAL
== END 2019-11-19 14:04 | disposition home or self-care (01) | DRG 720 ==
LOC: ER 10:14 → 7WST 13:01 → EDBEDREQTM 13:08 → EDBEDREQ 13:08 → EDBEDREQSVC 18:28 → ENRESERV 22:20 → 6WST 11-15 21:58
PROVIDERS: ADMIT Internal Medicine; ATTEND Internal Medicine
PROC: 02HV33Z Insertion of Infusion Device into Superior Vena Cava, Percutaneous Approach (ICD-10-PCS; principal; 2019-11-16)
PROC: B5181ZA Fluoroscopy of Superior Vena Cava using Low Osmolar Contrast, Guidance (ICD-10-PCS; 2019-11-16)
PROC: B548ZZA Ultrasonography of Superior Vena Cava, Guidance (ICD-10-PCS; 2019-11-16)
DX: A41.9 Sepsis, unspecified organism (principal); R65.20 Severe sepsis without septic shock; E87.6 Hypokalemia; F17.200 Nicotine dependence, unspecified, uncomplicated; I10 Essential (primary) hypertension; K29.70 Gastritis, unspecified, without bleeding; N39.0 Urinary tract infection, site not specified; G40.909 Epilepsy, unspecified, not intractable, without status epilepticus; M10.9 Gout, unspecified; Z03.818 Encounter for observation for suspected exposure to other biological agents ruled out; Z86.69 Personal history of other diseases of the nervous system and sense organs; K52.9 Noninfective gastroenteritis and colitis, unspecified; G93.41 Metabolic encephalopathy
CPT/HCPCS: 36415; 36573; 71045; 74177; 76937; 80048; 80053; 80202; 80305; 80320; 81003; 82140; 82962; 83605; 83735; 84100; 84145; 84443; 84484; 85025; 87077; 87186; 87635; 93005; 93970; 96365; 96367; 96375; 97116; 97162; 97166; 99285; 99291; C1725; J0696; J1650; J1953; J2405; J2543; J3370; J3480; J7030; J7040; J7060; Q9967; G0480

== ENCOUNTER → 2021-08-11 | Outpatient (CLI) | payer MEDICARE, MEDICAID ==
[~2021-08-11] MED LIST changes: -ACET-2708 PO; +ALBUTEROL (0.083%) 2.5MG/3ML NEB ONE; -AMMO140C2 TP; +AMOX1TAB16 MT; -KETO15CR2 TP; +LEVO500T2 MT; -VIT B12 PO; -VIT D PO
== END | disposition home or self-care (01) ==
LOC: PF 10:31
PROVIDERS: ATTEND Internal Medicine
DX: J44.9 Chronic obstructive pulmonary disease, unspecified (principal); Z20.822 Contact with and (suspected) exposure to COVID-19
CPT/HCPCS: 87426; 94060; 94727; 94729